=== PATIENT | female | born 1945 | race Caucasian/White ===

== ENCOUNTER → 2023-12-23 13:55 | Outpatient (REF) | payer MEDICARE, OTHER, SELFPAY | LOC: WDC 13:55 | PROVIDERS: ATTENDING PHYSICIAN Student in an Organized Health Care Education/Training Program | DX: R92.8 Other abnormal and inconclusive findings on diagnostic imaging of breast (principal) | CPT/HCPCS: 76642 ==

== ENCOUNTER → 2024-03-26 06:29 | Day surgery (SDC) | payer MEDICARE, OTHER, SELFPAY | LOC: GI 06:29 | PROVIDERS: ATTENDING PHYSICIAN Internal Medicine Gastroenterology | DX: Z12.11 Encounter for screening for malignant neoplasm of colon (principal); Z80.0 Family history of malignant neoplasm of digestive organs; K64.0 First degree hemorrhoids; K57.30 Diverticulosis of large intestine without perforation or abscess without bleeding; D17.5 Benign lipomatous neoplasm of intra-abdominal organs | CPT/HCPCS: G0105 ==

== ENCOUNTER → 2024-04-25 12:32 | Outpatient (REF) | payer MEDICARE, OTHER, SELFPAY ==
[2024-04-25 16:07] LABS: % Basophils 0.6 % (0-2); % Immature Granulocytes 0.2 % (0-0.5); % Lymphocytes 14.6 % (20.5-51.1); % Monocytes 10.2 % (1.7-9.3); % Neutrophils 74.4 % (42.2-75.2); Absolute Basophils 0.1 10^3/uL (0-0.2); Absolute Lymphocytes 1.2 10^3/uL (1.2-3.4); Absolute Monocytes 0.8 10^3/uL (0.1-0.6); Absolute Neutrophils 6.1 10^3/uL (1.4-6.5); Hematocrit 35.6 % (37.0-47.0); Hemoglobin 11.7 g/dL (12.0-16.0); Mean Corp Hgb Conc. 32.9 g/dL (33.0-37.0); Mean Corpuscular Volume 91.3 fL (81.0-99.0); Nucleated Red Blood Cells % 0 %; Platelet Count 311 10^3/uL (130-400); Red Cell Dist. Width 14.5 % (11.5-14.5); White Blood Cell Count 8.2 10^3/uL (4.8-10.8)
[2024-04-25 17:28] LABS: Blood Urea Nitrogen 34 mg/dl (7-17); Calcium 9.4 mg/dl (8.4-10.2); Carbon Dioxide 28 mmol/L (22-30); Chloride 102 mmol/L (98-107); Glucose 79 mg/dl (70-99); Potassium 5.3 mmol/L (3.5-5.1); Sodium 137 mmol/L (135-145); eGFR > 60.00
== END ==
LOC: HWLAB 12:32
PROVIDERS: ATTENDING PHYSICIAN Orthopaedic Surgery; FAMILY PHYSICIAN Student in an Organized Health Care Education/Training Program
DX: Z01.818 Encounter for other preprocedural examination (principal)
CPT/HCPCS: 36415; 80048; 85025; 93005

== ENCOUNTER → 2024-07-04 14:36 | Outpatient (REF) | payer MEDICARE, OTHER, SELFPAY | LOC: WDC 14:36 | PROVIDERS: ATTENDING PHYSICIAN Student in an Organized Health Care Education/Training Program | DX: Z12.31 Encounter for screening mammogram for malignant neoplasm of breast (principal) | CPT/HCPCS: 77063; 77067 ==

== ENCOUNTER → 2024-07-26 07:27 | Outpatient (REF) | payer MEDICARE, OTHER, SELFPAY | LOC: MRI 07:27 | PROVIDERS: ATTENDING PHYSICIAN Student in an Organized Health Care Education/Training Program | DX: H53.2 Diplopia (principal) | CPT/HCPCS: 70553; A9575 ==

== ENCOUNTER → 2024-08-30 12:00 | Outpatient (REF) | payer MEDICARE, OTHER, SELFPAY | LOC: DHSLP 12:00 | PROVIDERS: ATTENDING PHYSICIAN Internal Medicine; FAMILY PHYSICIAN Student in an Organized Health Care Education/Training Program | DX: G47.33 Obstructive sleep apnea (adult) (pediatric) (principal); G47.00 Insomnia, unspecified; G47.61 Periodic limb movement disorder; R09.02 Hypoxemia; R06.83 Snoring | CPT/HCPCS: 95810 ==

== ENCOUNTER → 2024-09-24 17:07 | Outpatient (REF) | payer MEDICARE, OTHER, SELFPAY | LOC: DHSLP 17:07 | PROVIDERS: ATTENDING PHYSICIAN Internal Medicine; FAMILY PHYSICIAN Student in an Organized Health Care Education/Training Program | DX: G47.00 Insomnia, unspecified (principal) | CPT/HCPCS: 95810 ==

== ENCOUNTER → 2024-11-02 11:02 | Outpatient (REF) | payer MEDICARE, OTHER, SELFPAY | LOC: PAVMRI 11:02 | PROVIDERS: FAMILY PHYSICIAN Student in an Organized Health Care Education/Training Program | DX: H53.2 Diplopia (principal) | CPT/HCPCS: 70543; A9575 ==

== ENCOUNTER 2024-11-19 06:20 | Day surgery (SDC) | payer MEDICARE, OTHER, SELFPAY | END 2024-11-19 10:17 | disposition home or self-care (01) | LOC: GI 06:20 | PROVIDERS: ATTENDING PHYSICIAN Internal Medicine Gastroenterology; FAMILY PHYSICIAN Student in an Organized Health Care Education/Training Program | DX: R12 Heartburn (principal); R05.3 Chronic cough; F45.8 Other somatoform disorders; R11.10 Vomiting, unspecified; Z53.8 Procedure and treatment not carried out for other reasons | CPT/HCPCS: 43235 ==

== ENCOUNTER 2024-12-05 11:23 | Outpatient (RCR) | payer MEDICARE, OTHER, SELFPAY ==
[2024-12-05] MEDS: INJECTAFER 265 MG IV (12:06)
[2024-12-05 12:08] VITALS: BP 129/76
[2024-12-05 12:47] VITALS: BP 87/75
[2024-12-05 13:34] VITALS: BP 128/53
== END 2024-12-06 10:11 | disposition home or self-care (01) ==
LOC: OID 11:23
PROVIDERS: ATTENDING PHYSICIAN Student in an Organized Health Care Education/Training Program
DX: D50.9 Iron deficiency anemia, unspecified (principal); K58.9 Irritable bowel syndrome, unspecified
CPT/HCPCS: 96365; J1439

== ENCOUNTER 2024-12-06 06:32 | Day surgery (SDC) | payer MEDICARE, OTHER, SELFPAY | END 2024-12-06 11:23 | disposition home or self-care (01) | LOC: GI 06:32 | PROVIDERS: ATTENDING PHYSICIAN Internal Medicine Gastroenterology | DX: R10.84 Generalized abdominal pain (principal); R11.2 Nausea with vomiting, unspecified; R13.10 Dysphagia, unspecified; Q39.9 Congenital malformation of esophagus, unspecified; K44.9 Diaphragmatic hernia without obstruction or gangrene; K22.10 Ulcer of esophagus without bleeding; K22.2 Esophageal obstruction; K31.7 Polyp of stomach and duodenum; K31.89 Other diseases of stomach and duodenum | CPT/HCPCS: 43239; 88305; 88342 ==

== ENCOUNTER 2024-12-12 10:40 | Outpatient (RCR) | payer MEDICARE, OTHER, SELFPAY ==
[2024-12-12 10:45] VITALS: BP 117/58
[2024-12-12] MEDS: INJECTAFER 265 MG IV (11:00)
[2024-12-12 11:36] VITALS: BP 127/63
== END 2025-01-07 23:59 | disposition home or self-care (01) ==
LOC: OID 10:40
PROVIDERS: ATTENDING PHYSICIAN Student in an Organized Health Care Education/Training Program
DX: D50.9 Iron deficiency anemia, unspecified (principal); K58.9 Irritable bowel syndrome, unspecified
CPT/HCPCS: 96365; J1439

== ENCOUNTER → 2025-01-01 08:14 | Outpatient (REF) | payer MEDICARE, OTHER, SELFPAY | LOC: PAVMRI 08:14 | PROVIDERS: ATTENDING PHYSICIAN Internal Medicine; FAMILY PHYSICIAN Student in an Organized Health Care Education/Training Program | DX: H05.129 Orbital myositis, unspecified orbit (principal) | CPT/HCPCS: 70543; A9575 ==

== ENCOUNTER 2025-01-21 06:24 | Day surgery (SDC) | payer MEDICARE, OTHER, SELFPAY | END 2025-01-21 10:53 | disposition home or self-care (01) | LOC: GI 06:24 | PROVIDERS: ATTENDING PHYSICIAN Internal Medicine Gastroenterology | DX: R10.84 Generalized abdominal pain (principal); R13.10 Dysphagia, unspecified; K44.9 Diaphragmatic hernia without obstruction or gangrene; K22.2 Esophageal obstruction; K22.10 Ulcer of esophagus without bleeding | CPT/HCPCS: 43249; 43239 ==

== ENCOUNTER → 2025-03-11 14:54 | Outpatient (REF) | payer MEDICARE, OTHER, SELFPAY | LOC: CLAB 14:54 | PROVIDERS: ATTENDING PHYSICIAN Urology | DX: C67.8 Malignant neoplasm of overlapping sites of bladder (principal) | CPT/HCPCS: 88112 ==

== ENCOUNTER → 2025-03-19 13:10 | Outpatient (REF) | payer MEDICARE, OTHER, SELFPAY | LOC: HWRAD 13:10 | PROVIDERS: ATTENDING PHYSICIAN Internal Medicine Rheumatology; FAMILY PHYSICIAN Student in an Organized Health Care Education/Training Program | DX: M41.9 Scoliosis, unspecified (principal); M46.96 Unspecified inflammatory spondylopathy, lumbar region; M85.80 Other specified disorders of bone density and structure, unspecified site | CPT/HCPCS: 72070; 72110 ==

== ENCOUNTER 2025-08-09 09:06 | Outpatient (RCR) | payer MEDICARE, OTHER, SELFPAY ==
[2025-07-19] MEDS: SOLU-MEDROL PF 54 MG IV (14:57)
[2025-07-19 15:13] VITALS: BP 117/58
[2025-07-19 15:30] VITALS: BP 112/58
[2025-07-19 16:09] VITALS: BP 111/55
[2025-07-26 14:34] VITALS: BP 113/54
[2025-07-26] MEDS: SOLU-MEDROL PF 54 MG IV (14:50)
[2025-07-26 15:27] VITALS: BP 111/46
[2025-08-02 13:34] VITALS: BP 147/75
[2025-08-02] MEDS: SOLU-MEDROL PF 54 MG IV (13:44)
[2025-08-09] MEDS: SOLU-MEDROL PF 54 MG IV (09:30)
[2025-08-09 09:34] VITALS: BP 140/75
== END 2025-08-09 23:59 | disposition home or self-care (01) ==
LOC: OID 09:06
PROVIDERS: ATTENDING PHYSICIAN Ophthalmology
DX: E05.00 Thyrotoxicosis with diffuse goiter without thyrotoxic crisis or storm (principal)
CPT/HCPCS: 96365

== ENCOUNTER 2025-09-06 12:58 | Outpatient (RCR) | payer MEDICARE, OTHER, SELFPAY ==
[2025-08-23] MEDS: SOLU-MEDROL PF 54 MG IV (14:11)
[2025-08-23] MEDS: NSS 250 IV (14:12)
[2025-08-23 14:16] VITALS: BP 130/59
[2025-08-30 12:59] VITALS: BP 132/61
[2025-08-30] MEDS: SOLU-MEDROL PF 54 MG IV (13:17)
[2025-08-30 14:30] VITALS: BP 133/70
[2025-09-06 13:19] VITALS: BP 122/66
[2025-09-06] MEDS: SOLU-MEDROL PF 54 MG IV (13:27)
== END 2025-09-08 23:59 | disposition home or self-care (01) ==
LOC: OID 12:58
PROVIDERS: ATTENDING PHYSICIAN Ophthalmology; FAMILY PHYSICIAN Student in an Organized Health Care Education/Training Program
DX: E05.00 Thyrotoxicosis with diffuse goiter without thyrotoxic crisis or storm (principal)
CPT/HCPCS: 96361; 96365

== ENCOUNTER 2025-09-16 12:42 | Outpatient (RCR) | payer MEDICARE, OTHER, SELFPAY ==
[2025-09-16] MEDS: SOLU-MEDROL PF 54 MG IV (13:14)
[2025-09-16 13:19] VITALS: BP 139/66
[2025-09-16 14:20] VITALS: BP 155/72
== END 2025-09-17 11:05 | disposition home or self-care (01) ==
LOC: OID 12:42
PROVIDERS: ATTENDING PHYSICIAN Ophthalmology; FAMILY PHYSICIAN Student in an Organized Health Care Education/Training Program
DX: E05.00 Thyrotoxicosis with diffuse goiter without thyrotoxic crisis or storm (principal)
CPT/HCPCS: 96365